=== PATIENT | male | born 1975 | race African-American/Black ===

== ENCOUNTER 2018-09-26 01:18 | Inpatient (IN) | payer MEDICAID, OTHER ==
[~2018-09-26] VITALS: Ht 182.9 cm; Wt 100.0 kg
[~2018-09-26 01:18] MED LIST: CLON0.2T PO; DIAZ10TA PO; HYDR2TAB4 PO; INSASP SUBCUT; LANTUSUD SUBCUT; NICO-682 TD; NIFE60TA83 PO; OXYC15TA82 PO
[2018-09-26] MEDS ORDERED: ONDANSETRON HCL 4MG/2ML INJ IV STA (01:32)
[2018-09-26] MEDS ORDERED: MORPHINE SULFATE 4 MG/ML CPJ (NOT FOR IM USE) IV STA (01:32)
[2018-09-26] MEDS ORDERED: ASPIRIN 81MG TABLET PO ONE (01:45)
[2018-09-26] MEDS ORDERED: DIPHENHYDRAMINE 25MG CAPSULE PO ONE (01:45)
[2018-09-26] MEDS ORDERED: CLONIDINE 0.2MG TABLET PO ONE (01:45)
[2018-09-26 02:04] LABS: BASOPHILS % 0.9 % (0.0-2.0); EOSINOPHILS % 2.2 % (0.0-5.0); HEMOGLOBIN. 12.4 g/dL (14.0-18.0); LYMPHOCYTES % 38.6 % (20.0-50.0); MEAN CORPUSCULAR HEMOGLOBIN 28.2 pg (28.0-32.0); MEAN CORPUSCULAR VOLUME 88.7 fL (80.0-94.0); MEAN PLATELET VOLUME 8.8 fl (7.4-10.4); MONOCYTES % 9.9 % (2.0-8.0); NEUTROPHILS % 48.4 % (40.0-76.0); PLATELET 217 x1000/uL (130-400); RED CELL DISTRIBUTION WIDTH 18.1 % (11.6-14.6)
[2018-09-26 02:09] LABS: CHLORIDE 104 mEq/L (98-107)
[2018-09-26 02:13] LABS: PARTIAL THROMBOPLASTIN TIME 24.9 sec (23.4-31.0); PROTHROMBIN TIME 9.6 sec (9.1-11.1)
[2018-09-26] MEDS ORDERED: KETOROLAC 30MG/ML VIAL IV ONE (02:45)
[2018-09-26] MEDS ORDERED: POTASSIUM CHLORIDE 20MEQ TABLET SR PO NR (15:15)
[2018-09-26] MEDS ORDERED: NIFEDIPINE XL 60MG TAB PO SCH (15:15)
[2018-09-26] MEDS ORDERED: DEXTROSE 50% WATER 50ML SYRINGE IV PRN ×2 (15:30)
[2018-09-26] MEDS ORDERED: MAGNESIUM/ALUMINUM HYDROXIDE/SIMETHICONE 30ML UDC PO PRN (15:30)
[2018-09-26] MEDS ORDERED: NICOTINE 14MG PATCH TD SCH (15:30)
[2018-09-26] MEDS ORDERED: DOCUSATE SODIUM 100MG CAPSULE PO PRN (15:30)
[2018-09-26] MEDS ORDERED: NICOTINE 14MG PATCH TD NR (16:00)
[2018-09-26] MEDS ORDERED: HYDROMORPHONE HCL 2MG TABLET PO PRN (16:00)
[2018-09-26] MEDS ORDERED: NIFEDIPINE XL 60MG TAB PO NR (16:00)
[2018-09-26] MEDS: CLONIDINE 0.1MG TABLET PO SCH (16:34)
[2018-09-26] MEDS: DIAZEPAM 5 MG TABLET PO PRN ×2 (16:37→22:09)
[2018-09-26] MEDS: INSULIN LISPRO 100 UNITS/ML SUBCUT SCH ×2 (17:00→18:10)
[2018-09-26] MEDS: BLOOD SUGAR DIAGNOSTIC STRIP TEST SCH ×3 (17:00→20:59)
[2018-09-26 17:51] VITALS: BP 164/86
[2018-09-26 17:59] VITALS: BP 164/86
[2018-09-26 20:30] VITALS: BP 176/117
[2018-09-26] MEDS: HYDROMORPHONE HCL 2MG TABLET PO PRN (21:22)
[2018-09-26] MEDS ORDERED: INSULIN GLARGINE UD 100 UNITS/ML SYR SUBCUT SCH (22:00)
[2018-09-26 22:18] VITALS: BP 171/109
[2018-09-27] VITALS: BP 164/106
[2018-09-27] MEDS ORDERED: MORPHINE SULFATE 4 MG/ML CPJ (NOT FOR IM USE) IV SCH (00:15)
[2018-09-27] MEDS ORDERED: CLONIDINE 0.2MG TABLET PO SCH ×2 (00:15→21:00)
[2018-09-27] MEDS ORDERED: HYDROMORPHONE HCL/PF 2MG/ML CPJ IV SCH (01:00)
[2018-09-27] MEDS: HYDROMORPHONE HCL 2MG TABLET PO PRN ×6 (02:13→23:04)
[2018-09-27 04:00] VITALS: BP 164/96
[2018-09-27] MEDS: DIAZEPAM 5 MG TABLET PO PRN ×3 (04:30→20:05)
[2018-09-27] MEDS: BLOOD SUGAR DIAGNOSTIC STRIP TEST SCH ×4 (07:38→21:00)
[2018-09-27 08:00] VITALS: BP 176/124
[2018-09-27] MEDS: CLONIDINE 0.1MG TABLET PO SCH (08:28)
[2018-09-27] MEDS: OXYCODONE HCL 10MG TABLET SR 12HR PO SCH ×2 (08:30→21:36)
[2018-09-27] MEDS: INSULIN LISPRO 100 UNITS/ML SUBCUT SCH ×4 (08:31→18:53)
[2018-09-27] MEDS: NICOTINE 14MG PATCH TD SCH (08:34)
[2018-09-27] MEDS ORDERED: NIFEDIPINE XL 60MG TAB PO SCH (09:00)
[2018-09-27] MEDS ORDERED: NEBIVOLOL HCL 5 MG TABLET PO SCH (10:00)
[2018-09-27 10:08] LABS: BASOPHILS % 0.8 % (0.0-2.0); EOSINOPHILS % 3.3 % (0.0-5.0); HEMATOCRIT. 36.9 % (42.0-52.0); HEMOGLOBIN. 11.9 g/dL (14.0-18.0); LYMPHOCYTES % 37.3 % (20.0-50.0); MEAN CORPUSCULAR HEMOGLOBIN 28.2 pg (28.0-32.0); MEAN PLATELET VOLUME 8.4 fl (7.4-10.4); MONOCYTES % 10.2 % (2.0-8.0); NEUTROPHILS % 48.4 % (40.0-76.0); PLATELET 180 x1000/uL (130-400); RED CELL DISTRIBUTION WIDTH 17.4 % (11.6-14.6)
[2018-09-27] MEDS: CLONIDINE 0.2MG TABLET PO SCH ×3 (10:18→21:41)
[2018-09-27 10:22] LABS: CHLORIDE 104 mEq/L (98-107)
[2018-09-27 10:30] LABS: PHOSPHORUS 2.9 mg/dL (2.5-4.9)
[2018-09-27 10:31] LABS: HDL CHOLESTEROL 43 mg/dL (40-59); LDL CHOLESTEROL 136 mg/dL (5-100)
[2018-09-27 10:33] LABS: T4 FREE 1.04 ng/dL (0.76-1.46)
[2018-09-27] MEDS ORDERED: REGADENOSON 0.4 MG/5 ML IV NR (10:45)
[2018-09-27 12:00] VITALS: BP 161/89
[2018-09-27] MEDS: LIDOCAINE 5% PATCH TOP SCH ×2 (12:00→13:10)
[2018-09-27 15:33] LABS: *AMPHETAMINES SCREEN URINE NEGATIVE (NEGATIVE); *BARBITURATES SCREEN URINE NEGATIVE (NEGATIVE); *BENZODIAZEPINES SCREEN URINE PRESUMTIVE POSITIVE (NEGATIVE); *COCAINE SCREEN URINE NEGATIVE (NEGATIVE); METHADONE URINE SCREEN NEGATIVE (NEGATIVE); OPIATES URINE SCREEN PRESUMTIVE POSITIVE (NEGATIVE)
[2018-09-27 15:34] LABS: CANNABINOID URINE SCREEN NEGATIVE (NEGATIVE); PHENCYCLIDINE URINE SCREEN NEGATIVE (NEGATIVE)
[2018-09-27 16:00] VITALS: BP 177/110
[2018-09-27] MEDS: DOCUSATE SODIUM 100MG CAPSULE PO SCH (17:00)
[2018-09-27] MEDS ORDERED: METOPROLOL TARTRATE 5MG/5ML VIAL IV ONE (18:15)
[2018-09-27] MEDS ORDERED: METOPROLOL TARTRATE 5MG/5ML VIAL IV PRN (18:30)
[2018-09-27 20:00] VITALS: BP 166/100
[2018-09-27] MEDS: NIFEDIPINE XL 60MG TAB PO SCH (21:37)
[2018-09-27] MEDS ORDERED: INSULIN GLARGINE UD 100 UNITS/ML SYR SUBCUT SCH (23:00)
[2018-09-28] VITALS (7 sets, daily range): BP systolic 136–183; BP diastolic 63–113
[2018-09-28] MEDS: DIAZEPAM 5 MG TABLET PO PRN ×2 (03:07→11:34)
[2018-09-28] MEDS: HYDROMORPHONE HCL 2MG TABLET PO PRN ×3 (04:03→13:11)
[2018-09-28 06:10] LABS: CHLORIDE 100 mEq/L (98-107)
[2018-09-28] MEDS: CLONIDINE 0.2MG TABLET PO SCH (06:32)
[2018-09-28 06:36] LABS: HEMATOCRIT. 41.5 % (42.0-52.0); HEMOGLOBIN. 13.3 g/dL (14.0-18.0); MEAN CORPUSCULAR VOLUME 90.6 fL (80.0-94.0); MEAN PLATELET VOLUME 8.5 fl (7.4-10.4); PLATELET 138 x1000/uL (130-400); RED BLOOD CELL COUNT 4.58 mill/uL (4.7-6.1); RED CELL DISTRIBUTION WIDTH 17.6 % (11.6-14.6)
[2018-09-28] MEDS: BLOOD SUGAR DIAGNOSTIC STRIP TEST SCH ×2 (08:12→13:07)
[2018-09-28] MEDS: INSULIN LISPRO 100 UNITS/ML SUBCUT SCH ×2 (08:43→14:02)
[2018-09-28] MEDS: LIDOCAINE 5% PATCH TOP SCH (09:00)
[2018-09-28 09:52] LABS: NUCLEATED RED BLOOD CELLS 1 /100 WBC
[2018-09-28 09:53] LABS: PLATELET ESTIMATE NORMAL
[2018-09-28] MEDS: NICOTINE 14MG PATCH TD SCH (11:33)
[2018-09-28] MEDS: OXYCODONE HCL 10MG TABLET SR 12HR PO SCH (11:33)
[2018-09-28] MEDS: NIFEDIPINE XL 60MG TAB PO SCH (11:34)
[2018-09-28] MEDS: DOCUSATE SODIUM 100MG CAPSULE PO SCH (11:34)
[2018-09-28] MEDS ORDERED: MAGNESIUM 1 G PREMIX 100 ML IV NR (12:00)
== END 2018-09-28 16:13 | disposition home or self-care (01) | DRG 243 ==
LOC: ER 01:31 → 7WST 05:14 → EDBEDREQ 14:06 → ENRESERV 15:55
PROVIDERS: ADMIT Family Medicine Adult Medicine; ATTEND Family Medicine Adult Medicine
DX: K21.9 Gastro-esophageal reflux disease without esophagitis (principal); I42.9 Cardiomyopathy, unspecified; F11.20 Opioid dependence, uncomplicated; D64.9 Anemia, unspecified; E11.9 Type 2 diabetes mellitus without complications; E87.6 Hypokalemia; F17.200 Nicotine dependence, unspecified, uncomplicated; G89.29 Other chronic pain; M54.5 Low back pain; I34.0 Nonrheumatic mitral (valve) insufficiency; I10 Essential (primary) hypertension; M48.00 Spinal stenosis, site unspecified; Z79.4 Long term (current) use of insulin; Z82.49 Family history of ischemic heart disease and other diseases of the circulatory system; Z83.3 Family history of diabetes mellitus; Z88.9 Allergy status to unspecified drugs, medicaments and biological substances; Z88.5 Allergy status to narcotic agent
CPT/HCPCS: 36415; 71045; 74018; 80048; 80061; 80305; 82962; 83036; 83735; 83880; 84100; 84439; 84443; 84481; 84484; 85379; 93005; 93306; 93970; 96374; 99285; J1170; J1815; J2270; J2405; J3475; J3490; J7050; J7070; Q0163

== ENCOUNTER 2019-10-14 23:55 | Emergency (ER) | payer MEDICAID ==
[~2019-10-14] VITALS: Ht 180.3 cm; Wt 100.4 kg
[~2019-10-14 23:55] MED LIST changes: +NIFE60TA82 PO; -NIFE60TA83 PO
[2019-10-15] MEDS ORDERED: ONDANSETRON HCL 4MG/2ML INJ IV STA (01:08)
[2019-10-15] MEDS ORDERED: SODIUM CHLORIDE 0.9% 1,000 ML IV ONE (01:08)
[2019-10-15] MEDS ORDERED: FENTANYL CITRATE/PF 50MCG/ML 2ML VIAL IV ONE (01:15)
[2019-10-15 01:31] LABS: BASOPHILS % 0.6 % (0.0-2.0); EOSINOPHILS % 1.6 % (0.0-5.0); HEMATOCRIT. 33.8 % (42.0-52.0); HEMOGLOBIN. 10.8 g/dL (14.0-18.0); LYMPHOCYTES % 21.8 % (20.0-50.0); MEAN CORPUSCULAR VOLUME 78.1 fL (80.0-94.0); MEAN PLATELET VOLUME 8.4 fl (7.4-10.4); MONOCYTES % 12.5 % (2.0-8.0); NEUTROPHILS % 63.5 % (40.0-76.0); PLATELET 239 x1000/uL (130-400); RED BLOOD CELL COUNT 4.33 mill/uL (4.7-6.1); RED CELL DISTRIBUTION WIDTH 18.2 % (11.6-14.6)
[2019-10-15 01:35] VITALS: BP 158/94
[2019-10-15 01:38] LABS: CHLORIDE 102 mEq/L (98-107)
[2019-10-15 01:43] LABS: *AMPHETAMINES SCREEN URINE NEGATIVE (NEGATIVE); *BARBITURATES SCREEN URINE NEGATIVE (NEGATIVE); *BENZODIAZEPINES SCREEN URINE PRESUMTIVE POSITIVE (NEGATIVE)
[2019-10-15 01:44] LABS: *COCAINE SCREEN URINE NEGATIVE (NEGATIVE); CANNABINOID URINE SCREEN NEGATIVE (NEGATIVE); METHADONE URINE SCREEN NEGATIVE (NEGATIVE); OPIATES URINE SCREEN PRESUMTIVE POSITIVE (NEGATIVE); PHENCYCLIDINE URINE SCREEN NEGATIVE (NEGATIVE)
[2019-10-15] MEDS ORDERED: METHYLPREDNISOLONE SOD SUCC 125 MG/2 ML VIAL IV ONE (02:15)
== END 2019-10-15 03:44 | disposition home or self-care (01) ==
LOC: ER 23:55 → CANBEDREQ 10-15 04:49
DX: R07.89 Other chest pain (principal); R10.13 Epigastric pain; I10 Essential (primary) hypertension; E11.9 Type 2 diabetes mellitus without complications; Z91.041 Radiographic dye allergy status; Z88.6 Allergy status to analgesic agent; Z91.011 Allergy to milk products; Z88.8 Allergy status to other drugs, medicaments and biological substances; Z88.1 Allergy status to other antibiotic agents; Z79.899 Other long term (current) drug therapy; Z98.890 Other specified postprocedural states; Z79.4 Long term (current) use of insulin
CPT/HCPCS: 36415; 71045; 80053; 80305; 83605; 83690; 84484; 85025; 85379; 93005; 96374; 96375; 99285; J2405; J3010; J7030

== ENCOUNTER 2020-05-29 12:03 | Emergency (ER) | payer MEDICAID, OTHER ==
[~2020-05-29] VITALS: Ht 180.3 cm; Wt 90.0 kg
[2020-05-29] MEDS ORDERED: CLONIDINE 0.2MG TABLET PO ONE (13:15)
[2020-05-29] MEDS ORDERED: HYDROCHLOROTHIAZIDE 25MG TABLET PO ONE (13:15)
[2020-05-29 14:28] VITALS: BP 158/102
[2020-05-29] MEDS ORDERED: CARVEDILOL 12.5MG TABLET PO ONE (14:30)
[2020-05-29] MEDS ORDERED: NIFEDIPINE 10MG CAPSULE PO ONE (14:30)
== END 2020-05-29 15:12 | disposition home or self-care (01) ==
LOC: ER 12:03
DX: I11.0 Hypertensive heart disease with heart failure (principal); I50.9 Heart failure, unspecified; E11.9 Type 2 diabetes mellitus without complications; Z91.14 Patient's other noncompliance with medication regimen; Z91.041 Radiographic dye allergy status; Z91.011 Allergy to milk products; Z88.6 Allergy status to analgesic agent; Z79.899 Other long term (current) drug therapy; Z79.4 Long term (current) use of insulin
CPT/HCPCS: 93005; 99283

== ENCOUNTER 2020-06-19 19:52 | Emergency (ER) | payer OTHER ==
[~2020-06-19] VITALS: Ht 180.3 cm; Wt 89.0 kg
[2020-06-19] MEDS ORDERED: ONDANSETRON HCL 4MG/2ML INJ IV STA (20:38)
[2020-06-19] MEDS ORDERED: MORPHINE SULFATE 4 MG/ML CPJ (NOT FOR IM USE) IV STA (20:38)
[2020-06-19] MEDS ORDERED: SODIUM CHLORIDE 0.9% 1,000 ML IV ONE (20:45)
[2020-06-19 21:52] VITALS: BP 170/103
[2020-06-19 21:53] LABS: BASOPHILS % 1.2 % (0.0-2.0); EOSINOPHILS % 2.5 % (0.0-5.0); HEMATOCRIT. 35.6 % (42.0-52.0); HEMOGLOBIN. 11.7 g/dL (14.0-18.0); LYMPHOCYTES % 27.1 % (20.0-50.0); MEAN CORPUSCULAR HEMOGLOBIN 27.1 pg (28.0-32.0); MEAN CORPUSCULAR VOLUME 82.8 fL (80.0-94.0); MEAN PLATELET VOLUME 8.4 fl (7.4-10.4); MONOCYTES % 8.5 % (2.0-8.0); NEUTROPHILS % 60.7 % (40.0-76.0); PLATELET 241 x1000/uL (130-400); RED CELL DISTRIBUTION WIDTH 17.6 % (11.6-14.6)
[2020-06-19 21:57] LABS: CHLORIDE 104 mEq/L (98-107)
[2020-06-19 22:01] LABS: ETHANOL BLOOD < 10 mg/dL
[2020-06-19 22:13] LABS: CLARITY URINE CLEAR (CLEAR); COLOR URINE YELLOW (YELLOW); KETONES URINE NEGATIVE (NEGATIVE); LEUKOCYTE ESTERASE URINE NEGATIVE (NEGATIVE); NITRITE URINE NEGATIVE (NEGATIVE); OCCULT BLOOD URINE NEGATIVE (NEGATIVE); PH URINE 7.5 (4.5-8.0); PROTEIN URINE 2+ (NEGATIVE); UROBILINOGEN URINE 0.2 E.U./dL (0.2-1.0)
[2020-06-19 22:35] LABS: METHADONE URINE SCREEN NEGATIVE (NEGATIVE)
[2020-06-19 22:36] LABS: *AMPHETAMINES SCREEN URINE NEGATIVE (NEGATIVE); *BARBITURATES SCREEN URINE NEGATIVE (NEGATIVE); *BENZODIAZEPINES SCREEN URINE PRESUMTIVE POSITIVE (NEGATIVE); *COCAINE SCREEN URINE NEGATIVE (NEGATIVE); CANNABINOID URINE SCREEN NEGATIVE (NEGATIVE); OPIATES URINE SCREEN PRESUMTIVE POSITIVE (NEGATIVE); PHENCYCLIDINE URINE SCREEN NEGATIVE (NEGATIVE)
[2020-06-19] MEDS ORDERED: ASPIRIN 81MG TABLET PO ONE (23:45)
[2020-06-19 23:51] LABS: D-DIMER < 0.19 mg/L FEU (<0.50); PARTIAL THROMBOPLASTIN TIME 27.3 sec (23.4-31.0); PROTHROMBIN TIME 10.4 sec (9.6-11.0)
== END 2020-06-20 00:35 | disposition left against medical advice (07) ==
LOC: ER 19:52
DX: R07.2 Precordial pain (principal); R10.0 Acute abdomen; K62.5 Hemorrhage of anus and rectum; I11.0 Hypertensive heart disease with heart failure; I50.9 Heart failure, unspecified; E78.00 Pure hypercholesterolemia, unspecified
CPT/HCPCS: 36415; 71045; 74176; 80053; 80305; 80320; 81003; 83690; 83880; 84484; 85025; 85379; 85610; 85730; 87086; 93005; 99285; J7030; G0480

== ENCOUNTER 2021-03-13 00:17 | Emergency (ER) | payer MEDICAID, OTHER ==
[~2021-03-13] VITALS: Ht 177.8 cm; Wt 82.0 kg
[~2021-03-13 00:17] MED LIST changes: -NICO-682 TD; +NICO-789 TD
[2021-03-13 01:30] LABS: HEMATOCRIT. 32.4 % (42.0-52.0); HEMOGLOBIN. 10.1 g/dL (14.0-18.0); MEAN CORPUSCULAR HEMOGLOBIN 25.4 pg (28.0-32.0); MEAN CORPUSCULAR VOLUME 81.6 fL (80.0-94.0); MEAN PLATELET VOLUME 8.8 fl (7.4-10.4); PLATELET 310 x1000/uL (130-400); RED BLOOD CELL COUNT 3.97 mill/uL (4.7-6.1); RED CELL DISTRIBUTION WIDTH 20.6 % (11.6-14.6)
[2021-03-13 01:37] LABS: CHLORIDE 107 mEq/L (98-107)
[2021-03-13 01:41] LABS: ETHANOL BLOOD < 10 mg/dL
[2021-03-13] MEDS ORDERED: POTASSIUM CHLORIDE 20MEQ TABLET SR PO SCH (02:45)
[2021-03-13 03:44] LABS: PLATELET ESTIMATE NORMAL
[2021-03-13 05:05] VITALS: BP 131/62
[2021-03-13] MEDS ORDERED: IBUPROFEN 600MG TABLET PO ONE (05:15)
== END 2021-03-13 05:42 | disposition home or self-care (01) ==
LOC: ER 00:17
DX: R10.84 Generalized abdominal pain (principal); D72.819 Decreased white blood cell count, unspecified; Z88.8 Allergy status to other drugs, medicaments and biological substances; Z91.041 Radiographic dye allergy status; Z91.011 Allergy to milk products; Z20.822 Contact with and (suspected) exposure to COVID-19
CPT/HCPCS: 36415; 80053; 80320; 85025; 87426; 99283; G0480